=== PATIENT | female | born 1970 | race Hispanic/Latino ===

== ENCOUNTER 2018-04-08 07:33 | Emergency (ER) | payer OTHER, SELFPAY ==
[2018-04-08] MEDS ORDERED: Ketorolac Tromethamine 30 MG/ML VIAL ONE (07:48)
[2018-04-08] MEDS ORDERED: Ondansetron HCl/PF 4 MG/2 ML Vial ONE (07:52)
[2018-04-08] MEDS ORDERED: Morphine 4 MG/ML VIAL ONE (08:48)
[2018-04-08 08:53] LABS: Bilirubin Negative (Negative); Blood, Urine Negative (Negative); Clarity CLOUDY (Clear); Glucose, Urine (Dipstick) Negative (Negative); Leukocyte Negative (Negative); Nitrite Negative (Negative); Protein, Urine (Dipstick) Negative (Neg-Trace); Specific Gravity, Urine 1.015 (1.002-1.036); Urobilinogen 0.2 mg/dL (0.2-1.0)
--- NOTE | 2018-04-08 10:14 | ULT ---
ULTRASOUND PELVIC ULTRASOUND TRANSVAGINAL DOPPLER DUPLEX: Date: 04/08/18 HISTORY: 47-year-old female with palpable mass in the pelvis. TECHNIQUE: Transabdominal transducer used to evaluate intrapelvic contents using the urinary bladder as an acous tic window. Endovaginal transducer used to visualize intrapelvic contents in greater detail. Color fl ow Doppler and Pulsed Doppler spectral waveform analysis of ovaries. FINDINGS: Bladder volume is small at the time of the scan. Uterus is surgically absent. The ovaries are not vis ualized. No moderate or large amount of free fluid is visualized. IMPRESSION: 1. Featureless pelvis, status post hysterectomy. 2. Recommend CT of the pelvis for the palpable mass. SOFIA Allison POS: PETER
[2018-04-09 22:44] LABS: Chlamydia by PCR Not Detected (NotDetected); GC by PCR Not Detected (NotDetected)
== END 2018-04-08 12:45 | disposition home or self-care (01) ==
LOC: ERS 07:33
DX: M54.5 Low back pain (principal); F32.9 Major depressive disorder, single episode, unspecified; F17.210 Nicotine dependence, cigarettes, uncomplicated
CPT/HCPCS: 76856; 81003; 87491; 87591; 96374; 96375; J1885; J2270; J2405

== ENCOUNTER 2018-09-06 16:47 | Emergency (ER) | payer SELFPAY ==
[2018-09-06 17:20] LABS: Bilirubin Negative (Negative); Blood, Urine Trace (Negative); Clarity CLOUDY (Clear); Glucose, Urine (Dipstick) Negative (Negative); Leukocyte Trace (Negative); Nitrite Negative (Negative); Protein, Urine (Dipstick) Negative (Neg-Trace); Specific Gravity, Urine 1.024 (1.002-1.036); Urobilinogen 0.2 mg/dL (0.2-1.0)
[2018-09-06 17:21] LABS: Bacteria/HPF Rare-Few HPF (None Seen); Hyaline Casts/LPF 4-6 HYALINE CAST LPF (0-3 Hyaline)
[2018-09-06 17:29] LABS: RBC/HPF None Seen HPF (0-3); Renal Epithelial None Seen HPF (0-3); Transitional Epithelial NONE SEEN HPF (0-3)
[2018-09-06] MEDS ORDERED: Ketorolac Tromethamine 30 MG/ML VIAL ONE (18:08)
[2018-09-06] MEDS ORDERED: Diazepam 5 MG TAB ONE (18:10)
[2018-09-06] MEDS ORDERED: HYDROcodone/Acetaminophen 5/325 mg Tablet ONE (19:25)
== END 2018-09-06 19:52 | disposition home or self-care (01) ==
LOC: ERS 16:47
DX: M54.5 Low back pain (principal); I10 Essential (primary) hypertension; F32.9 Major depressive disorder, single episode, unspecified; F17.210 Nicotine dependence, cigarettes, uncomplicated
CPT/HCPCS: 81003; 81015; 96372; J1885

== ENCOUNTER 2021-06-07 17:44 | Emergency (ER) | payer SELFPAY ==
[2021-06-07] MEDS ORDERED: HYDROcodone/Acetaminophen 10/325 mg Tablet ONE (19:35)
== END 2021-06-07 20:43 | disposition home or self-care (01) ==
LOC: ERS 17:44
DX: S52.552A Other extraarticular fracture of lower end of left radius, initial encounter for closed fracture (principal); I10 Essential (primary) hypertension; F17.210 Nicotine dependence, cigarettes, uncomplicated; Z79.899 Other long term (current) drug therapy; W19.XXXA Unspecified fall, initial encounter
CPT/HCPCS: 29125